=== PATIENT | male | born 1950 | race African-American/Black ===

== ENCOUNTER 2017-03-10 11:34 | Inpatient (IN) | payer OTHER ==
[2017-03-10 15:43] VITALS: BMI 26.6
[2017-03-10] MEDS ORDERED: MENTHOL/PHENOL 1 EACH UD MM PRN (16:53)
[2017-03-10] MEDS ORDERED: guaiFENesin/D-METHORPHAN HB 10 ML UNIT-DOSE CUPS PO PRN (16:53)
[2017-03-10] MEDS ORDERED: MAGNESIUM CITRATE 300 ML BOTTLE PO PRN (16:53)
[2017-03-10] MEDS ORDERED: MAG HYDROX/AL HYDROX/SIMETH 30 ML UNIT-DOSE CUP PO PRN (16:53)
[2017-03-10] MEDS ORDERED: P-EPHED 60MG/TRIPROLIDI 2.5MG TABLET PO PRN (16:53)
[2017-03-10] MEDS ORDERED: ACETAMINOPHEN 325 MG TABLET (FP) PO PRN (16:53)
[2017-03-10] MEDS ORDERED: LOPERAMIDE HCL 2 MG CAPSULE PO PRN (16:53)
[2017-03-10] MEDS ORDERED: NICOTINE POLACRILEX 2 MG GUM BC PRN (16:53)
[2017-03-10] MEDS ORDERED: MAGNESIUM HYDROX 2400MG/30ML ORAL SUSPENSION 30 ML CUP PO PRN (16:53)
--- NOTE | 2017-03-10 17:09 | HP ---
COWS - Scale Resting Pulse: 0= [place] 80 or Below Sweatin=Flushed/Facial Moisture Restless Observation: 1= Difficult to Sit Still Pupil Size: 2= Moderately Dilated Bone or Joint Aches: 2= Severe Diffuse Aches Runny Nose/ Eye Tearin= Runny Nose/Eyes GI Upset > 30mins: 2= Nausea/Diarrhea Tremor Observation: 2= Slight Tremor Visible Yawning Observation: 1= 1-2x During Session Anxiety or Irritability: 2=Irritable/Anxious Goose Flesh Skin: 0=Smooth Skin COWS Score: 16 Admission ROS S - HPI Chief Complaint: Withdrawal sx. Allergies/Adverse Reactions: Allergies Allergy/AdvReac Type Severity Reaction Status Date / Time Penicillins Allergy Severe Hives Verified 03/10/17 16:50 pork derived (porcine) Allergy Severe Hives Verified 03/10/17 16:50 History of Present Illness: 66 y/o man with a long hx. of heroin dependence is admitted for detox. Pt. has been in previous detox reports 3 yrs. drug free. Exam Limitations: No Limitations - Ebola screening Have you traveled outside of the country in the last 21 days: No Have you had contact with anyone from an Ebola affected area: No Have you been sick,other than usual withdrawal symptoms: No - Review of Systems Constitutional: Diaphoresis EENT: reports: Nose Congestion Respiratory: reports: No Symptoms reported Cardiac: reports: No Symptoms Reported GI: reports: Nausea, Abdominal cramping : reports: No Symptoms Reported Musculoskeletal: reports: Back Pain, Joint Pain, Muscle Pain Integumentary: reports: Sweating Neuro: reports: Tingling, Tremors Endocrine: reports: No Symptoms Reported Hematology: reports: No Symptoms Reported Psychiatric: reports: No Sypmtoms Reported Other Systems: Reviewed and Negative Patient History - Patient Medical History Hx Anemia: Yes (no meds) Hx Asthma: No Hx Chronic Obstructive Pulmonary Disease (COPD): No Hx Cancer: No Hx Cardiac Disorders: No Hx Congestive Heart Failure: No Hx Hypertension: Yes (can't remember) Hx Hypercholesterolemia: No Hx Pacemaker: No HX Cerebrovascular Accident: No Hx Seizures: No Hx Dementia: No Hx Diabetes: No Hx Gastrointestinal Disorders: No Hx Liver Disease: Yes Hx Genitourinary Disorders: No Hx Sexually Transmitted Disorders: No Hx Renal Disease (ESRD): No Hx Hepatitis C: Yes (8 wks of [place]) Hx Depression: Yes Hx Suicide Attempt: Yes (Tried to walk in traffic 2014) Hx Bipolar Disorder: Yes Hx Schizophrenia: No - Patient Surgical History Past Surgical History: Yes Hx Cholecystectomy: Yes (2014) Hx Orthopedic Surgery: Yes (bilateral hip replacements 02/2016 R hip ,L hip 2013) - PPD History Previous Implant?: Yes Documented Results: Negative w/o proof Implanted On Prior [facility] Admission?: No PPD to be Administered?: Yes - Smoking Cessation Smoking history: Current every day smoker Have you smoked in the past 12 months: Yes Aproximately how many cigarettes per day: 7 Hx Chewing Tobacco Use: No Initiated information on smoking cessation: Yes 'Breaking Loose' booklet given: 03/10/17 - Substance & Tx. History Hx Alcohol Use: No Hx Substance Use: Yes Substance Use Type: Heroin, Opiates Hx Substance Use Treatment: Yes (Detox) - Substances Abused Heroin Route: Injection Frequency: Daily Amount used: 7-8 bags Age of first use: 15 Date of Last Use: 03/09/17 Non-Rx Methadone Route: Oral Frequency: 3-6 times per week Amount used: 80mg Age of first use: 30 Date of Last Use: 03/03/17 Family Disease History - Family Disease History Family Disease History: Heart Disease: Father (CHF), Brother (CHF), [place]: Mother Admission Physical Exam [facility] - Vital Signs Vital Signs: Vital Signs - 24 hr 03/10/17 15:40 Temperature 96.4 F L Pulse Rate 70 Respiratory 20 Rate Blood Pressure 127/84 - Physical General Appearance: Yes: Tremorous, Irritable, Sweating, Anxious HEENTM: Yes: Nasal Congestion, Rhinorrhea Respiratory: Yes: Chest Non-Tender, Lungs Clear, Normal Breath Sounds Neck: Yes: Supple Breast: Yes: Breast Exam Deferred Cardiology: Yes: Regular Rhythm, Regular Rate, S1, S2 Abdominal: Yes: Normal Bowel Sounds, Non Tender, Soft Genitourinary: Yes: Within Normal Limits Back: Yes: Within Normal Limits Musculoskeletal: Yes: full range of Motion Extremities: Yes: Tremors Neurological: Yes: Fully Oriented, Alert Integumentary: Yes: Rash (dry scaly rash both legs), Track Flores (in groin area) Lymphatic: Yes: Within Normal Limits - Diagnostic (1) Opioid dependence with withdrawal Current Visit: Yes Status: Acute (2) HIV (human immunodeficiency virus infection) Current Visit: Yes Status: Acute (3) HTN (hypertension) Current Visit: Yes Status: Acute Qualifiers: Hypertension type: essential hypertension Qualified Code(s): I10 - Essential (primary) hypertension Cleared for Admission S - Detox or Rehab [facility] Level of Care: Medically Managed Detox Regimen/Protocol: Methadone [facility] Breath Alcohol Content Breath Alcohol Content: 0 Urine Drug Screen - Results Drug Screen Negative: No Urine Drug Screen Results: OPI-Opiates, MTD-Methadone, TCA-Tricyclic Antidepress
[2017-03-10] MEDS ORDERED: METHADONE HCL 10 MG TABLET (FOR DETOX USE ONLY) PO ONE ×2 (18:15→23:00)
[2017-03-10] MEDS: diazePAM 5 MG TABLET PO PRN (19:14)
[2017-03-10] MEDS: amLODIPine BESYLATE 10 MG TABLET (FP) PO SCH (19:14)
[2017-03-10] MEDS: NICOTINE 14 MG/24 HOURS TOPICAL PATCH TD SCH (19:42)
[2017-03-10] MEDS: THIAMINE HCL 100 MG TABLET (FP) PO SCH (22:34)
[2017-03-10] MEDS: AMMONIUM LACTATE 12% LOTION 225 GM BOTTLE TP SCH (22:35)
--- NOTE | 2017-03-11 07:28 | CONSULT ---
[facility] Psychiatric Consult - Data Date of interview: 03/11/17 Admission source: [facility] Identifying data: This is 66 years old male with psychiatric hospitalization history, history of Schizoaffective disorder intoxicated with: Opioids, Nicotine Substance Abuse History: Smoking history: Current every day smoker. Have you smoked in the past 12 months: Yes. Aproximately how many cigarettes per day: 7. Hx Chewing Tobacco Use: No. Initiated information on smoking cessation: Yes. 'Breaking Loose' booklet given: 03/10/17. - Substance & Tx. History. Hx Alcohol Use: No. Hx Substance Use: Yes. Substance Use Type: Heroin, Opiates. Hx Substance Use Treatment: Yes (Detox). - Substances Abused. Heroin. Route: Injection. Frequency: Daily. Amount used: 7-8 bags. Age of first use: 15. Date of Last Use: 03/09/17. Non-Rx Methadone. Route: Oral. Frequency : 3-6 times per week. Amount used: 80mg. Age of first use: 30. Date of Last Use: 03/03/17 Medical History: HIV, HTN, Xerosis Psychiatric History: Patient reports history of Schizoaffective disorder , preoccupied with insomnia, reports last psychiatric admission on more then 5 years ago, reports no psyhiatric medications taking since then Physical/Sexual Abuse/Trauma History: Denies Additional Comment: Drug Screen Negative: No. Urine Drug Screen Results: OPI- Opiates, MTD-Methadone, TCA-Tricyclic Antidepress Mental Status Exam - Mental Status Exam Alert and Oriented to: Person Cognitive Function: Fair Patient Appearance: Unkempt Mood: Apprehensive Affect: Mood Congruent Patient Behavior: Cooperative Speech Pattern: Appropriate Voice Loudness: Normal Thought Process: Goal Oriented Thought Disorder: Being Controlled Hallucinations: Denies Suicidal Ideation: Denies Homicidal Ideation: Denies Insight/Judgement: Fair Sleep: Difficulty falling asleep Appetite: Weight gain Muscle strength/Tone: Mild Hypotonicity Gait/Station: Shuffling Additional Comments: Drug Screen Negative: No. Urine Drug Screen Results: OPI- Opiates, MTD-Methadone, TCA-Tricyclic Antidepress Psychiatric Findings - Problem List ([place] 1, 2,3) (1) Opioid dependence with withdrawal Current Visit: Yes Status: Acute (2) Nicotine dependence Current Visit: Yes Status: Acute (3) Schizoaffective disorder Current Visit: Yes Status: Acute (4) Opioid-induced sleep disorder, insomnia type, with onset during discontinuation/withdrawal Current Visit: Yes Status: Acute - Initial Treatment Plan Initial Treatment Plan: Doxepin 50mg po qhs
[2017-03-11] MEDS ORDERED: PATIENT'S OWN MEDICATION (NON-FORMULARY) (Abacavir Sulfate/Lamivudine [Epzicom -] 1 TAB) PO SCH (10:00)
[2017-03-11] MEDS ORDERED: METHADONE HCL 10 MG TABLET (FOR DETOX USE ONLY) PO ONE (10:00)
[2017-03-11 10:11] LABS: MCH 32.1 pg (25.7-33.7); MCHC 32.8 g/dl (32.0-35.9); MEAN CELL VOLUME 97.7 fl (80-96); MEAN PLT VOLUME 8.2 fl (7.5-11.1); PLATELET COUNT 172 K/MM3 (134-434); RDW 13.4 % (11.9-15.9); WHITE BLOOD COUNT 4.3 K/mm3 (4.0-10.0)
[2017-03-11] MEDS: amLODIPine BESYLATE 10 MG TABLET (FP) PO SCH (10:28)
[2017-03-11] MEDS: DARUNAVIR ETHANOLATE 800 MG TAB PO SCH (10:28)
[2017-03-11] MEDS: PRENATAL VITAMINS W/ FOLIC ACID TABLET (FP) PO SCH (10:28)
[2017-03-11] MEDS: RITONAVIR 100 MG TABLET PO SCH (10:29)
[2017-03-11] MEDS: AMMONIUM LACTATE 12% LOTION 225 GM BOTTLE TP SCH ×2 (10:29→22:37)
[2017-03-11] MEDS: NICOTINE 14 MG/24 HOURS TOPICAL PATCH TD SCH (10:30)
[2017-03-11] MEDS: ABACAVIR SULFATE 300 MG TABLET PO SCH (10:30)
[2017-03-11] MEDS: diazePAM 5 MG TABLET PO PRN (10:31)
[2017-03-11] MEDS: IBUPROFEN 400 MG TABLET (FP) PO PRN (10:32)
[2017-03-11 10:49] LABS: ALBUMIN 3.2 g/dl (3.4-5.0); ALK PHOS 101 U/L (45-117); ANION GAP 14 (8-16); BILIRUBIN,TOTAL 0.5 mg/dL (0.2-1.0); CALCIUM 8.6 mg/dL (8.5-10.1); CO2 22 mmol/L (21-32); COCKROFT - GAULT 88.05; CREATININE 0.9 mg/dL (0.7-1.3); GLUCOSE,RANDOM 82 mg/dL (74-106); SGOT/AST 21 U/L (15-37); SGPT/ALT 22 U/L (12-78); TOT PROT 7.4 g/dl (6.4-8.2)
--- NOTE | 2017-03-11 11:54 | PN ---
[facility] COWS - Scale Resting Pulse: 1= [place] 81-100 Sweatin=Flushed/Facial Moisture Restless Observation: 1= Difficult to Sit Still Pupil Size: 0= Normal to Room Light Bone or Joint Aches: 2= Severe Diffuse Aches Runny Nose/ Eye Tearin= Runny Nose/Eyes GI Upset > 30mins: 2= Nausea/Diarrhea Tremor Observation of Outstretched Hands: 2= Slight Tremor Visible Yawning Observation: 2= >3x During Session Anxiety or Irritability: 1=Feels Anxious/Irritable Goose Flesh Skin: 0=Smooth Skin COWS Score: 15 BHS Progress Note (SOAP) Subjective: back pain sweats shakes interrupted sleep agitation anxiety Objective: 03/11/17 11:53 Vital Signs Temperature 96.3 F L 03/11/17 09:38 Pulse Rate 85 03/11/17 09:38 Respiratory Rate 20 03/11/17 09:38 Blood Pressure 108/78 03/11/17 09:38 O2 Sat by Pulse Oximetry (%) Laboratory Tests 03/11/17 03/11/17 03/11/17 07:00 07:00 07:00 WBC 4.3 RBC 3.82 L Hgb 12.3 Hct 37.4 MCV 97.7 H MCHC 32.8 RDW 13.4 Plt Count 172 MPV 8.2 Sodium 142 Potassium 3.2 L Chloride 106 Carbon Dioxide 22 Anion Gap 14 BUN 11 Creatinine 0.9 Creat Clearance w eGFR > 60 Random Glucose 82 Calcium 8.6 Total Bilirubin 0.5 AST 21 ALT 22 Alkaline Phosphatase 101 Total Protein 7.4 Albumin 3.2 L RPR Titer Nonreactive labs pending awake/alert lying in bed no acute distress Assessment: 03/11/17 11:54 withdrawal sx Plan: continue detox increase fluids lidocaine patch
[2017-03-11] MEDS ORDERED: POTASSIUM CHLORIDE TABS 20 MEQ TABLET.ER (FP) PO SCH ×2 (12:15)
[2017-03-11] MEDS: LIDOCAINE 5% TOPICAL PATCH TP SCH (12:30)
--- NOTE | 2017-03-11 13:34 | EKG ---
Test Reason : Blood Pressure : / mmHG Vent. Rate : 065 BPM Atrial Rate : 065 BPM P-R Int : 184 ms QRS Dur : 084 ms QT Int : 420 ms P-R-T Axes : 052 029 048 degrees QTc Int : 436 ms NORMAL SINUS RHYTHM NONSPECIFIC ST ABNORMALITY ABNORMAL ECG NO PREVIOUS ECGS AVAILABLE Confirmed by MARCO A VELAZCO MD ([id number]) on 03/11/2017 1:34:15 PM Referred By: Confirmed By:MARCO A VELAZCO MD
[2017-03-11] MEDS ORDERED: POTASSIUM CHLORIDE TABS 20 MEQ TABLET.ER (FP) PO ONE (15:16)
[2017-03-11] MEDS: DOXEPIN HCL 50 MG CAPSULE PO SCH (22:35)
[2017-03-11] MEDS: diphenhydrAMINE HCL 50 MG CAPSULE PO PRN (22:36)
[2017-03-11] MEDS: THIAMINE HCL 100 MG TABLET (FP) PO SCH (22:38)
[2017-03-12] MEDS ORDERED: METHADONE HCL 5 MG TABLET (FOR DETOX USE ONLY) PO ONE (10:00)
[2017-03-12] MEDS: RITONAVIR 100 MG TABLET PO SCH (10:22)
[2017-03-12] MEDS: DARUNAVIR ETHANOLATE 800 MG TAB PO SCH (10:22)
[2017-03-12] MEDS: PRENATAL VITAMINS W/ FOLIC ACID TABLET (FP) PO SCH (10:22)
[2017-03-12] MEDS: POTASSIUM CHLORIDE TABS 20 MEQ TABLET.ER (FP) PO SCH (10:22)
[2017-03-12] MEDS: AMMONIUM LACTATE 12% LOTION 225 GM BOTTLE TP SCH ×2 (10:23→22:47)
[2017-03-12] MEDS: ABACAVIR SULFATE 300 MG TABLET PO SCH (10:23)
[2017-03-12] MEDS: NICOTINE 14 MG/24 HOURS TOPICAL PATCH TD SCH (10:23)
--- NOTE | 2017-03-12 10:24 | PN ---
[facility] COWS - Scale Resting Pulse: 1= [place] 81-100 Sweatin= Chills/Flushing Restless Observation: 3= Extraneous Movement Pupil Size: 1= Pupils >than Normal Bone or Joint Aches: 2= Severe Diffuse Aches Runny Nose/ Eye Tearin= Runny Nose/Eyes GI Upset > 30mins: 3= Vomiting/Diarrhea Tremor Observation of Outstretched Hands: 2= Slight Tremor Visible Yawning Observation: 1= 1-2x During Session Anxiety or Irritability: 2=Irritable/Anxious Goose Flesh Skin: 0=Smooth Skin COWS Score: 18 S Progress Note (SOAP) Subjective: alert,irritable,anxious,interrupted sleep,tremor,pain in he body and back Objective: 03/12/17 10:22 Vital Signs Temperature 98.2 F 03/11/17 14:22 Pulse Rate 79 03/11/17 14:22 Respiratory Rate 18 03/12/17 03:30 Blood Pressure 160/97 03/11/17 14:22 O2 Sat by Pulse Oximetry (%) ekg nsr no chest pain,no sob,no dizziness 03/12/17 10:23 Laboratory Last Values WBC 4.3 K/mm3 (4.0-10.0) 03/11/17 07:00 RBC 3.82 M/mm3 (4.00-5.60) L 03/11/17 07:00 Hgb 12.3 GM/dL (11.7-16.9) 03/11/17 07:00 Hct 37.4 % (35.4-49) 03/11/17 07:00 MCV 97.7 fl (80-96) H 03/11/17 07:00 MCHC 32.8 g/dl (32.0-35.9) 03/11/17 07:00 RDW 13.4 % (11.9-15.9) 03/11/17 07:00 Plt Count 172 K/MM3 (134-434) 03/11/17 07:00 MPV 8.2 fl (7.5-11.1) 03/11/17 07:00 Sodium 142 mmol/L (136-145) 03/11/17 07:00 Potassium 3.2 mmol/L (3.5-5.1) L 03/11/17 07:00 Chloride 106 mmol/L (98-107) 03/11/17 07:00 Carbon Dioxide 22 mmol/L (21-32) 03/11/17 07:00 Anion Gap 14 (8-16) 03/11/17 07:00 BUN 11 mg/dL (7-18) 03/11/17 07:00 Creatinine 0.9 mg/dL (0.7-1.3) 03/11/17 07:00 Creat Clearance w eGFR > 60 (>60) 03/11/17 07:00 Random Glucose 82 mg/dL (74-106) 03/11/17 07:00 Calcium 8.6 mg/dL (8.5-10.1) 03/11/17 07:00 Total Bilirubin 0.5 mg/dL (0.2-1.0) 03/11/17 07:00 AST 21 U/L (15-37) 03/11/17 07:00 ALT 22 U/L (12-78) 03/11/17 07:00 Alkaline Phosphatase 101 U/L (45-117) 03/11/17 07:00 Total Protein 7.4 g/dl (6.4-8.2) 03/11/17 07:00 Albumin 3.2 g/dl (3.4-5.0) L 03/11/17 07:00 RPR Titer Nonreactive (NONREACTIVE) 03/11/17 07:00 Assessment: 03/12/17 10:23 withdrawal symptom 03/12/17 10:24 Plan: continue detox
[2017-03-12] MEDS: amLODIPine BESYLATE 10 MG TABLET (FP) PO SCH (10:26)
[2017-03-12] MEDS: LIDOCAINE 5% TOPICAL PATCH TP SCH (11:17)
[2017-03-12] MEDS: diazePAM 5 MG TABLET PO PRN ×2 (13:05→22:45)
[2017-03-12] MEDS: IBUPROFEN 400 MG TABLET (FP) PO PRN (13:08)
[2017-03-12 16:54] LABS: URINE APPEARANCE CLEAR; URINE BILIRUBIN NEGATIVE (NEGATIVE); URINE BLOOD NEGATIVE (NEGATIVE); URINE COLOR LTYELLOW; URINE GLUCOSE (UA) NEGATIVE (NEGATIVE); URINE KETONE NEGATIVE (NEGATIVE); URINE LEUK ESTERASE NEGATIVE (NEGATIVE); URINE NITRITE NEGATIVE (NEGATIVE); URINE PROTEIN NEGATIVE (NEGATIVE); URINE UROBILINOGEN NEGATIVE E.U./dl (0.2-1.0)
[2017-03-12] MEDS: THIAMINE HCL 100 MG TABLET (FP) PO SCH (22:45)
[2017-03-12] MEDS: DOXEPIN HCL 50 MG CAPSULE PO SCH (22:45)
[2017-03-12] MEDS: diphenhydrAMINE HCL 50 MG CAPSULE PO PRN (22:45)
[2017-03-13] MEDS ORDERED: METHADONE HCL 5 MG TABLET (FOR DETOX USE ONLY) PO ONE (10:00)
[2017-03-13] MEDS: ABACAVIR SULFATE 300 MG TABLET PO SCH (10:37)
[2017-03-13] MEDS: amLODIPine BESYLATE 10 MG TABLET (FP) PO SCH (10:37)
[2017-03-13] MEDS: PRENATAL VITAMINS W/ FOLIC ACID TABLET (FP) PO SCH (10:37)
[2017-03-13] MEDS: POTASSIUM CHLORIDE TABS 20 MEQ TABLET.ER (FP) PO SCH (10:38)
[2017-03-13] MEDS: diazePAM 5 MG TABLET PO PRN ×2 (10:38→15:32)
[2017-03-13] MEDS: DARUNAVIR ETHANOLATE 800 MG TAB PO SCH (10:38)
[2017-03-13] MEDS: AMMONIUM LACTATE 12% LOTION 225 GM BOTTLE TP SCH ×2 (10:39→22:38)
[2017-03-13] MEDS: NICOTINE 14 MG/24 HOURS TOPICAL PATCH TD SCH (10:39)
[2017-03-13] MEDS: RITONAVIR 100 MG TABLET PO SCH (10:39)
--- NOTE | 2017-03-13 10:42 | PN ---
BHS Progress Note (SOAP) Subjective: ALERT,IRRITABLE,ANXIOUS,INTERRUPTED SLEEP,TREMOR,PAIN IN THE BODY Objective: 03/13/17 10:42 Vital Signs Temperature 97.0 F L 03/13/17 10:27 Pulse Rate 86 03/13/17 10:27 Respiratory Rate 18 03/13/17 10:27 Blood Pressure 99/72 03/13/17 10:27 O2 Sat by Pulse Oximetry (%) Assessment: 03/13/17 10:42 WITHDRAWAL SYMPTOM Plan: CONTINUE DETOX
[2017-03-13] MEDS: LIDOCAINE 5% TOPICAL PATCH TP SCH (13:17)
[2017-03-13] MEDS: THIAMINE HCL 100 MG TABLET (FP) PO SCH (22:37)
[2017-03-13] MEDS: DOXEPIN HCL 50 MG CAPSULE PO SCH (22:37)
[2017-03-13] MEDS: diphenhydrAMINE HCL 50 MG CAPSULE PO PRN (22:39)
[2017-03-14] MEDS ORDERED: METHADONE HCL 10 MG TABLET (FOR DETOX USE ONLY) PO ONE (10:00)
[2017-03-14] MEDS: amLODIPine BESYLATE 10 MG TABLET (FP) PO SCH (10:28)
[2017-03-14] MEDS: POTASSIUM CHLORIDE TABS 20 MEQ TABLET.ER (FP) PO SCH (10:28)
[2017-03-14] MEDS: PRENATAL VITAMINS W/ FOLIC ACID TABLET (FP) PO SCH (10:28)
[2017-03-14] MEDS: hydrOXYzine PAMOATE 50 MG CAPSULE (FP) PO PRN (10:28)
[2017-03-14] MEDS: NICOTINE 14 MG/24 HOURS TOPICAL PATCH TD SCH (10:29)
[2017-03-14] MEDS: ABACAVIR SULFATE 300 MG TABLET PO SCH (10:29)
[2017-03-14] MEDS: AMMONIUM LACTATE 12% LOTION 225 GM BOTTLE TP SCH ×2 (10:30→22:37)
[2017-03-14] MEDS: RITONAVIR 100 MG TABLET PO SCH (10:30)
[2017-03-14] MEDS: LIDOCAINE 5% TOPICAL PATCH TP SCH (10:30)
[2017-03-14] MEDS: DARUNAVIR ETHANOLATE 800 MG TAB PO SCH (10:30)
[2017-03-14] MEDS ORDERED: ONDANSETRON *ODT* 4 MG TABLET SL PRN (12:11)
--- NOTE | 2017-03-14 12:13 | PN ---
S Progress Note (SOAP) Subjective: ALERT,IRRITABLE,ANXIOUS,INTERRUPTED SLEEP,NAUSEA Objective: 03/14/17 12:12 Vital Signs Temperature 97.2 F L 03/14/17 10:10 Pulse Rate 80 03/14/17 10:10 Respiratory Rate 20 03/14/17 10:10 Blood Pressure 102/78 03/14/17 10:10 O2 Sat by Pulse Oximetry (%) 03/14/17 12:12 Assessment: 03/14/17 12:12 03/14/17 12:13 WITHDRAWAL SYMPTOM Plan: CONTINUE DETOX
[2017-03-14] MEDS: THIAMINE HCL 100 MG TABLET (FP) PO SCH (22:38)
[2017-03-14] MEDS: diphenhydrAMINE HCL 50 MG CAPSULE PO PRN (22:38)
[2017-03-14] MEDS: DOXEPIN HCL 50 MG CAPSULE PO SCH (22:38)
[2017-03-15] MEDS ORDERED: METHADONE HCL 5 MG TABLET (FOR DETOX USE ONLY) PO ONE (06:00)
[2017-03-15] MEDS ORDERED: CYCLOBENZAPRINE HCL 10 MG TABLET (FP) PO PRN (09:59)
[2017-03-15] MEDS: LIDOCAINE 5% TOPICAL PATCH TP SCH (10:25)
[2017-03-15] MEDS: amLODIPine BESYLATE 10 MG TABLET (FP) PO SCH (10:26)
[2017-03-15] MEDS: NICOTINE 14 MG/24 HOURS TOPICAL PATCH TD SCH (10:26)
[2017-03-15] MEDS: PRENATAL VITAMINS W/ FOLIC ACID TABLET (FP) PO SCH (10:26)
[2017-03-15] MEDS: RITONAVIR 100 MG TABLET PO SCH (10:26)
[2017-03-15] MEDS: ABACAVIR SULFATE 300 MG TABLET PO SCH (10:26)
[2017-03-15] MEDS: DARUNAVIR ETHANOLATE 800 MG TAB PO SCH (10:26)
[2017-03-15] MEDS: hydrOXYzine PAMOATE 50 MG CAPSULE (FP) PO PRN ×2 (10:29→22:37)
[2017-03-15] MEDS: AMMONIUM LACTATE 12% LOTION 225 GM BOTTLE TP SCH ×2 (10:30→22:36)
--- NOTE | 2017-03-15 11:28 | PN ---
BHS Progress Note (SOAP) Subjective: interupted sleep, sweats, nausea, diarrhea Objective: 03/15/17 11:26 Vital Signs Temperature 98.7 F 03/15/17 10:00 Pulse Rate 85 03/15/17 10:00 Respiratory Rate 20 03/15/17 10:00 Blood Pressure 116/59 03/15/17 10:00 O2 Sat by Pulse Oximetry (%) Laboratory Tests 03/11/17 03/11/17 03/11/17 07:00 07:00 07:00 WBC 4.3 RBC 3.82 L Hgb 12.3 Hct 37.4 MCV 97.7 H MCHC 32.8 RDW 13.4 Plt Count 172 MPV 8.2 Sodium 142 Potassium 3.2 L Chloride 106 Carbon Dioxide 22 Anion Gap 14 BUN 11 Creatinine 0.9 Creat Clearance w eGFR > 60 Random Glucose 82 Calcium 8.6 Total Bilirubin 0.5 AST 21 ALT 22 Alkaline Phosphatase 101 Total Protein 7.4 Albumin 3.2 L Urine Color Urine Appearance Urine pH Ur Specific [place] Urine Protein Urine Glucose (UA) Urine Ketones Urine Blood Urine Nitrite Urine Bilirubin Urine Urobilinogen Ur Leukocyte Esterase RPR Titer Nonreactive 03/12/17 11:20 WBC RBC Hgb Hct MCV MCHC RDW Plt Count MPV Sodium Potassium Chloride Carbon Dioxide Anion Gap BUN Creatinine Creat Clearance w eGFR Random Glucose Calcium Total Bilirubin AST ALT Alkaline Phosphatase Total Protein Albumin Urine Color Ltyellow Urine Appearance Clear Urine pH 6.0 Ur Specific [place] 1.014 Urine Protein Negative Urine Glucose (UA) Negative Urine Ketones Negative Urine Blood Negative Urine Nitrite Negative Urine Bilirubin Negative Urine Urobilinogen Negative Ur Leukocyte Esterase Negative RPR Titer pt aox3 in nad ambulating Assessment: 03/15/17 11:26 withdrawal sx;s lbp diarrhea 03/15/17 11:27 Plan: cont. detox increase fluids imodium motrin prn d/c in am
[2017-03-15] MEDS: THIAMINE HCL 100 MG TABLET (FP) PO SCH (22:35)
[2017-03-15] MEDS: DOXEPIN HCL 50 MG CAPSULE PO SCH (22:35)
--- NOTE | 2017-03-16 09:02 | DS ---
[facility] Detox Discharge Summary Admission Date: 03/10/17 Discharge Date: 03/16/17 - History Present History: Opioid Dependence - Physical Exam Results Vital Signs: Vital Signs Temperature 97.1 F L 03/16/17 06:00 Pulse Rate 64 03/16/17 06:00 Respiratory Rate 18 03/16/17 06:00 Blood Pressure 97/63 03/16/17 06:00 O2 Sat by Pulse Oximetry (%) - Treatment Hospital Course: Detox Protocol Followed, Detoxed Safely, Responded well, Discharged Condition Good, Rehab Referral Accepted - Medication Discharge Medications: Ambulatory Orders Abacavir Sulfate/Lamivudine [Epzicom -] 1 tab PO DAILY 03/10/17 Darunavir Ethanolate [Prezista -] 800 mg PO DAILY 03/10/17 Ritonavir [Norvir -] 100 mg PO DAILY 03/10/17 Doxepin HCl [Sinequan -] 50 mg PO HS #30 cap 03/11/17 - Diagnosis (1) HIV (human immunodeficiency virus infection) Current Visit: Yes Status: Chronic (2) HTN (hypertension) Current Visit: Yes Status: Chronic Qualifiers: Hypertension type: essential hypertension Qualified Code(s): I10 - Essential (primary) hypertension (3) Nicotine dependence Current Visit: Yes Status: Chronic Qualifiers: Nicotine product type: cigarettes Substance use status: uncomplicated Qualified Code(s): F17.210 - Nicotine dependence, cigarettes, uncomplicated (4) Opioid dependence with withdrawal Current Visit: Yes Status: Chronic (5) Opioid-induced sleep disorder, insomnia type, with onset during discontinuation/withdrawal Current Visit: Yes Status: Acute (6) Schizoaffective disorder Current Visit: Yes Status: Acute (7) Xerosis of skin Current Visit: Yes Status: Chronic - AMA Did Patient Leave Against Medical Advice: No
[2017-03-16 09:35] VITALS: BP 98/57; PULSE 77; TEMP 98.8
[2017-03-16] MEDS: PRENATAL VITAMINS W/ FOLIC ACID TABLET (FP) PO SCH (10:53)
[2017-03-16] MEDS: NICOTINE 14 MG/24 HOURS TOPICAL PATCH TD SCH (11:15)
[2017-03-16] MEDS: LIDOCAINE 5% TOPICAL PATCH TP SCH (11:15)
[2017-03-16] MEDS: AMMONIUM LACTATE 12% LOTION 225 GM BOTTLE TP SCH (11:15)
[2017-03-16] MEDS: ABACAVIR SULFATE 300 MG TABLET PO SCH (11:16)
[2017-03-16] MEDS: DARUNAVIR ETHANOLATE 800 MG TAB PO SCH (11:16)
[2017-03-16] MEDS: RITONAVIR 100 MG TABLET PO SCH (11:16)
[2017-03-16] MEDS: amLODIPine BESYLATE 10 MG TABLET (FP) PO SCH (11:16)
== END 2017-03-16 11:00 | disposition home or self-care (01) | DRG 897 ==
LOC: YASAS 11:34 → Y6N 17:46
PROVIDERS: ADMIT Internal Medicine Addiction Medicine; ATTEND Internal Medicine Addiction Medicine
PROC: HZ2ZZZZ Detoxification Services for Substance Abuse Treatment (ICD-10-PCS; principal; 2017-03-16)
DX: F11.23 Opioid dependence with withdrawal (principal); F19.282 Other psychoactive substance dependence with psychoactive substance-induced sleep disorder; F17.210 Nicotine dependence, cigarettes, uncomplicated; R25.9 Unspecified abnormal involuntary movements; Z21 Asymptomatic human immunodeficiency virus [HIV] infection status; I10 Essential (primary) hypertension; L85.3 Xerosis cutis
CPT/HCPCS: 36415; 80053; 81003; 85027; 86593; 93005; 93010